=== PATIENT | female | born 1965 | race African-American/Black ===

== ENCOUNTER 2024-11-11 09:53 | Inpatient (IN) | payer OTHER ==
[~2024-11-11] VITALS: Ht 167.6 cm; Wt 76.7 kg
[2024-11-11] MEDS: ONDANSETRON HCL 4MG/2ML INJ IV ONE (10:20)
[2024-11-11] MEDS: SODIUM CHLORIDE 0.9% 1,000 ML IV ONE (10:37)
[2024-11-11] MEDS: MORPHINE SULFATE 4 MG/ML INJ (FOR IV/IM USE) IV STA (10:37)
[2024-11-11 10:48] LABS: BASOPHILS % 0.1 % (0.0-2.0); HEMATOCRIT. 39.5 % (36.0-48.0); HEMOGLOBIN. 12.9 g/dL (12.0-16.0); LYMPHOCYTES % 8.4 % (20.0-50.0); MEAN CORPUSCULAR HEMOGLOBIN 26.5 pg (28.0-32.0); MEAN CORPUSCULAR HGB CONC 32.7 g/dL (31.0-37.0); MEAN CORPUSCULAR VOLUME 81.1 fL (81.0-99.0); MONOCYTES % 3.4 % (2.0-8.0); NEUTROPHILS % 88.1 % (40.0-76.0); PLATELET 225 x1000/uL (130-400); RED BLOOD CELL COUNT 4.87 mill/uL (4.2-5.4); WHITE BLOOD COUNT 12.7 x1000/uL (4.5-11.0)
[2024-11-11 11:02] LABS: CARBON DIOXIDE 24 mEq/L (21-32); CHLORIDE 106 mEq/L (98-107); POTASSIUM 4.7 mEq/L (3.5-5.1); SODIUM 143 mEq/L (136-145)
[2024-11-11 11:03] LABS: CALCIUM 10.5 mg/dL (8.7-10.4)
[2024-11-11 11:07] LABS: CREATININE 1.3 mg/dL (0.6-1.0); GLUCOSE 146 mg/dL (70-105)
[2024-11-11 11:08] LABS: UREA NITROGEN BLOOD 16 mg/dL (9-23)
[2024-11-11 11:09] LABS: ALANINE AMINOTRANSFERASE 26 IU/L (10-49); ALBUMIN 5.4 g/dL (3.2-4.8); ASPARTATE AMINOTRANSFERASE 20 IU/L (<34); TROPONIN I HIGH SENSITIVITY < 4 ng/L (3.0-34)
[2024-11-11 11:10] LABS: BILIRUBIN DIRECT < 0.1 mg/dL (<=3.0); BILIRUBIN TOTAL 0.3 mg/dL (0.1-1.0); PROTEIN TOTAL 9.1 g/dL (6.0-8.3)
[2024-11-11 11:15] LABS: PROTHROMBIN TIME 10.4 sec (9.6-11.0)
[2024-11-11] MEDS: MORPHINE SULFATE 2 MG/ML INJ (NOT FOR IM USE) IV ONE (11:22)
[2024-11-11] MEDS: HALOPERIDOL LACTATE 5MG/ML VIAL IM ONE (12:35)
[2024-11-11 13:32] LABS: TROPONIN I HIGH SENSITIVITY 4 ng/L (3.0-34)
[2024-11-11] MEDS ORDERED: MAGNESIUM/ALUMINUM HYDROXIDE/SIMETHICONE 30ML UDC PO PRN (15:15)
[2024-11-11] MEDS ORDERED: ACETAMINOPHEN 325MG TABLET PO PRN (15:15)
[2024-11-11] MEDS ORDERED: ZOLPIDEM TARTRATE 5MG TABLET PO PRN (15:15)
[2024-11-11] MEDS ORDERED: ONDANSETRON HCL 4MG/2ML INJ IV PRN (15:15)
[2024-11-11] MEDS ORDERED: HYDROCODONE/ACETAMINOPHEN 5/325MG TABLET PO PRN (15:15)
[2024-11-11] MEDS ORDERED: NALOXONE HCL 0.4MG/ML VIAL IV PRN (15:30)
[2024-11-11] MEDS: SODIUM CHLORIDE 0.9% 1,000 ML IV SCH (16:06)
[2024-11-11] MEDS: ENOXAPARIN 40MG/0.4ML SYR SUBCUT SCH (16:06)
[2024-11-11 16:25] VITALS: BP 135/59; PULSE 72; TEMP 36.1; O2SAT 97
[2024-11-11 16:27] VITALS: BP 135/59; PULSE 72; RESP 18; TEMP 36.1
[2024-11-11 20:00] VITALS: BP 112/67; PULSE 71; RESP 18; TEMP 36.3; O2SAT 90
[2024-11-12] VITALS (7 sets, daily range): BP systolic 113–173; BP diastolic 63–95; PULSE 57–80; RESP 18–20; TEMP 36.2–36.8; O2SAT 91–100
[2024-11-12 06:34] LABS: BASOPHILS % 0.5 % (0.0-2.0); EOSINOPHILS % 0.3 % (0.0-5.0); HEMATOCRIT. 34.6 % (36.0-48.0); HEMOGLOBIN. 11.2 g/dL (12.0-16.0); LYMPHOCYTES % 34.7 % (20.0-50.0); MEAN CORPUSCULAR HEMOGLOBIN 26.1 pg (28.0-32.0); MEAN CORPUSCULAR HGB CONC 32.3 g/dL (31.0-37.0); MEAN CORPUSCULAR VOLUME 80.9 fL (81.0-99.0); MEAN PLATELET VOLUME 10.3 fl (7.4-10.4); MONOCYTES % 6.2 % (2.0-8.0); NEUTROPHILS % 58.3 % (40.0-76.0); PLATELET 183 x1000/uL (130-400); RED BLOOD CELL COUNT 4.28 mill/uL (4.2-5.4); WHITE BLOOD COUNT 7.8 x1000/uL (4.5-11.0)
[2024-11-12 06:50] LABS: CALCIUM 9.1 mg/dL (8.7-10.4); CARBON DIOXIDE 26 mEq/L (21-32); CHLORIDE 110 mEq/L (98-107); POTASSIUM 4.2 mEq/L (3.5-5.1); SODIUM 143 mEq/L (136-145)
[2024-11-12 06:55] LABS: CREATININE 0.9 mg/dL (0.6-1.0)
[2024-11-12 06:56] LABS: GLUCOSE 102 mg/dL (70-105); UREA NITROGEN BLOOD 13 mg/dL (9-23)
[2024-11-12] MEDS: PANTOPRAZOLE SODIUM 40 MG/VIAL IV SCH (08:15)
[2024-11-12] MEDS ORDERED: LOSA25TA26 MT (13:46)
[2024-11-12] MEDS ORDERED: AMLO5TAB88 MT (13:46)
[2024-11-12] MEDS ORDERED: PROT40 MT (14:49)
[2024-11-12] MEDS: CLONIDINE 0.1MG TABLET PO PRN (15:45)
== END 2024-11-12 16:38 | disposition home or self-care (01) | DRG 392 ==
LOC: ER 09:53 → 7EST 14:01 → EDBEDREQTM 14:03 → EDBEDREQ 14:03 → ENRESERV 14:45
PROVIDERS: ADMIT Internal Medicine; ATTEND Internal Medicine
DX: R10.13 Epigastric pain (principal); I10 Essential (primary) hypertension; Z90.710 Acquired absence of both cervix and uterus
CPT/HCPCS: 36415; 74176; 76705; 80048; 80076; 84484; 85025; 93005; 93970; 99285; A4606; J1630; J1650; J2270; J2405; J2470; J7030